=== PATIENT | female | born 1940 | race Caucasian/White ===

== ENCOUNTER 2018-03-07 13:13 | Emergency (ER) | payer MEDICARE ==
[~2018-03-07 13:13] MED LIST: ALLO-2 PO; ASPI-1471 PO; ATOR20TA65 PO; AVALOX; BLOO1STR16 MC; CELE-1 PO; CEPH500C24 PO; DIPH0.5D12 IM; ENAL-1 PO; FUR80 PO; FURO80TA70 PO; GLIM4TAB49 PO; GLIM4TAB50 PO; INDO50CA92 PO; INSU100I28 SQ; INSU100I36 SQ; INSU100V SQ; INSU300I SQ; INSU3INS2 SQ; LEVO175T42 PO; LEVO175T5 PO; LISI5TAB25 PO; MEPE50TA29 PO; METF-409 PO; METF-410 PO; METF-420 PO; PNEU0.5D3 IM; PROP10TA58 PO; SIM10 PO; SIMV-59 PO
--- NOTE | 2018-03-07 13:22 | ER Report ---
History and Physical Time Seen By MD: 13:21 HPI/ROS CHIEF COMPLAINT: Vomiting and diarrhea HISTORY OF PRESENT ILLNESS: This is a 77-year-old female who presents to the emergency department for nausea, vomiting and diarrhea. Patient states that about 6 days ago she developed some nausea and vomiting and progressed into diarrhea. Patient states that she still having nausea and vomiting however the diarrhea has resolved she's had a little output since Wednesday. Patient states that she did eat a salad on Wednesday and was concerned that she had some food poisoning from the recalled lettuce. Patient is also having generalized abdominal pain she thinks secondary to her persistent vomiting. She denies aches , chills, chest pain or shortness of breath. No rashes. No headaches. REVIEW OF SYSTEMS: Constitutional: No fever, no chills. Eyes: No discharge. ENT: No sore throat. Cardiovascular: No chest pain, no palpitations. Respiratory: No cough, no shortness of breath. Gastrointestinal: As above. Genitourinary: No hematuria. Musculoskeletal: No back pain. Skin: No rashes. Neurological: No headache. Allergies: Coded Allergies: ranitidine (Verified Allergy, Severe, ANAPHYLAXIS, 03/07/18) Penicillins (Verified Allergy, Mild, RASH, 03/07/18) Sulfa (Sulfonamide Antibiotics) (Verified Allergy, Mild, RASH, 03/07/18) acetaminophen (Verified Allergy, Mild, RASH, 03/07/18) codeine (Verified Allergy, Mild, RASH, 03/07/18) oxycodone (Verified Allergy, Mild, RASH, 03/07/18) propoxyphene (Verified Allergy, Mild, RASH, 03/07/18) Home Meds Active Scripts Ondansetron (ZOFRAN ODT) 4 Mg Tab.rapdis, 4 MG PO Q6H Y for NAUSEA/VOMITING, # 20 TAB.SALOMÓN Prov:CAMPOS HUDSON [facility] 03/07/18 Metaxalone (SKELAXIN) 800 Mg Tablet, 800 MG PO TID Y for prn, #12 TAB Prov:CAMPOS HUDSON [facility] 03/07/18 Allopurinol (Allopurinol) 300 Mg Tablet, 1 TAB PO DAILY, #90 TAB 3 Refills Prov:JAROD VASQUES MD 10/05/17 Lisinopril (LISINOPRIL) 5 Mg Tablet, 1 TAB PO DAILY, #90 TAB 3 Refills Prov:JAROD VASQUES MD 10/05/17 Furosemide (FUROSEMIDE) 80 Mg Tablet, 1 TAB PO BID, #180 TAB 3 Refills Prov:JAROD VASQUES MD 10/05/17 Propranolol Hcl (PROPRANOLOL HCL) 10 Mg Tablet, 1 TAB PO DAILY, #90 TAB 3 Refills Prov:JAROD VASQUES MD 10/05/17 Blood Sugar Diagnostic (FREESTYLE LITE TEST STRIPS) 1 Each Strip, 1 EACH MC QID Y for prn, #100 STRIP 6 Refills Prov:JAROD VASQUES MD 10/28/16 Levothyroxine Sodium (LEVOTHYROXINE SODIUM) 175 Mcg Tablet, 1 TAB PO QDAY, #90 TAB 3 Refills Prov:JAROD VASQUES MD 09/19/14 Reported Medications Insulin Glargine/Lixisenatide (Soliqua 100 Unit-33 Mcg/ml Pen) 100 Unit-33 Mcg/ Ml (3 Ml) Insuln.pen, 78 SQ QDAY 09/02/17 Atorvastatin Calcium (ATORVASTATIN CALCIUM) 20 Mg Tablet, 1 TAB PO QDAY 05/20/17 Metformin Hcl (METFORMIN HCL) 500 Mg Tablet, 1 TAB PO BID, TAB 05/20/17 Insulin Lispro 100 Un/Ml Pen (HUMALOG 3 ML PEN) 100 Unit/1 Ml Insuln.pen, 10-20 UNIT SQ Before meals sliding scale 11/28/14 Indomethacin (INDOMETHACIN) 50 Mg Capsule, 1 CAP PO TID Y for GOUT, CAPSULE 11/28/14 Aspirin (ASPIR 81) 81 Mg Tablet., 1 TAB PO QDAY 11/28/14 Past Medical/Surgical History Patient has a past medical and surgical history of murmur, hypertension, pneumonia, arthritis, type II diabetes, does use insulin for her to type II diabetes. 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 Reviewed Nurses Notes: Yes Hx Smoking: No Smoking Status: Never Smoker Exposure to Second Hand Smoke?: Yes Hx Alcohol Use: No Constitutional Vital Sign - Last 24 Hours 03/07/18 03/07/18 03/07/18 03/07/18 13:20 13:28 13:28 13:48 Temp 98.8 Pulse 92 96 Resp 18 B/P (MAP) 106/68 (81) 106/96 Pulse Ox 91 90 O2 Delivery Room Air O2 Flow Rate 2.0 03/07/18 03/07/18 03/07/18 03/07/18 13:52 16:00 16:01 16:43 Pulse 85 B/P (MAP) 109/46 (67) 116/48 (70) 120/52 (74) Intake and Output 03/07/18 03/07/18 03/08/18 15:00 23:00 07:00 Intake Total 1000 ml Balance 1000 ml Physical Exam General Appearance: The patient is alert, has no immediate need for airway protection and no signs of toxicity. Eyes: Pupils equal and round no pallor or injection. ENT, Mouth: Mucous membranes are moist. Respiratory: There are no retractions, lungs are clear to auscultation. Cardiovascular: Regular rate and rhythm, systolic murmur, no clicks or rubs. Gastrointestinal: Abdomen is soft and diffusely tender tender, no masses, hypoactive bowel sounds. No abdominal bruits Neurological: Alert and oriented 4. Moving all external these. Following all commands. No focal neuro deficits. Skin: Warm and dry, no rashes. Musculoskeletal: Neck is supple non tender. Extremities are nontender, nonswollen and have full range of motion. DIFFERENTIAL DIAGNOSIS: After history and physical exam differential diagnosis was considered for nausea and vomiting including but not limited to gastroenteritis, food poisoning, gastritis, appendicitis, and medication side effect. Medical Decision Making Data Points Result Diagram: 03/07/18 1341 03/07/18 1341 Laboratory Hematology Test 03/07/18 13:41 Red Blood Count 5.25 M/uL (4.17-5.56) Mean Corpuscular Volume 81.6 fL (80.0-96.0) Mean Corpuscular Hemoglobin 27.1 pg (26.0-33.0) Mean Corpuscular Hemoglobin Concent 33.3 g/dL (32.0-36.0) Red Cell Distribution Width 16.3 % (11.5-14.5) Mean Platelet Volume 7.6 fL (7.2-11.1) Neutrophils (%) (Auto) 92.8 % (39.4-72.5) Lymphocytes (%) (Auto) 3.5 % (17.6-49.6) Monocytes (%) (Auto) 3.3 % (4.1-12.4) Eosinophils (%) (Auto) 0.1 % (0.4-6.7) Basophils (%) (Auto) 0.3 % (0.3-1.4) Nucleated RBC Relative Count (auto) 0.0 /100WBC Neutrophils # (Auto) 12.4 K/uL (2.0-7.4) Lymphocytes # (Auto) 0.5 K/uL (1.3-3.6) Monocytes # (Auto) 0.4 K/uL (0.3-1.0) Eosinophils # (Auto) 0.0 K/uL (0.0-0.5) Basophils # (Auto) 0.0 K/uL (0.0-0.1) Nucleated RBC Absolute Count (auto) 0.00 K/uL Sodium Level 138 mmol/L (137-145) Potassium Level 3.6 mmol/L (3.5-5.0) Chloride Level 94 mmol/L (98-107) Carbon Dioxide Level 27 mmol/L (22-31) Blood Urea Nitrogen 27 mg/dl (7-18) Creatinine 1.40 mg/dl (0.52-1.04) Glomerular Filtration Rate Calc 36.7 Random Glucose 171 mg/dl (75-110) Calcium Level 10.1 mg/dl (8.4-10.2) Total Bilirubin 2.3 mg/dl (0.2-1.3) Aspartate Amino Transf (AST/SGOT) 424 U/L (0-35) Alanine Aminotransferase (ALT/SGPT) 217 U/L (0-56) Alkaline Phosphatase 1407 U/L (0-126) Total Protein 8.1 gm/dl (6.3-8.2) Albumin 4.1 g/dl (3.5-5.0) Amylase Level 60 U/L (0-110) Lipase 94 U/L (23-300) Chemistry Test 03/07/18 13:41 White Blood Count 13.4 k/uL (4.5-11.0) Red Blood Count 5.25 M/uL (4.17-5.56) Hemoglobin 14.2 g/dL (12.0-16.0) Hematocrit 42.9 % (34.0-47.0) Mean Corpuscular Volume 81.6 fL (80.0-96.0) Mean Corpuscular Hemoglobin 27.1 pg (26.0-33.0) Mean Corpuscular Hemoglobin Concent 33.3 g/dL (32.0-36.0) Red Cell Distribution Width 16.3 % (11.5-14.5) Platelet Count 425 K/uL (150-450) Mean Platelet Volume 7.6 fL (7.2-11.1) Neutrophils (%) (Auto) 92.8 % (39.4-72.5) Lymphocytes (%) (Auto) 3.5 % (17.6-49.6) Monocytes (%) (Auto) 3.3 % (4.1-12.4) Eosinophils (%) (Auto) 0.1 % (0.4-6.7) Basophils (%) (Auto) 0.3 % (0.3-1.4) Nucleated RBC Relative Count (auto) 0.0 /100WBC Neutrophils # (Auto) 12.4 K/uL (2.0-7.4) Lymphocytes # (Auto) 0.5 K/uL (1.3-3.6) Monocytes # (Auto) 0.4 K/uL (0.3-1.0) Eosinophils # (Auto) 0.0 K/uL (0.0-0.5) Basophils # (Auto) 0.0 K/uL (0.0-0.1) Nucleated RBC Absolute Count (auto) 0.00 K/uL Glomerular Filtration Rate Calc 36.7 Calcium Level 10.1 mg/dl (8.4-10.2) Total Bilirubin 2.3 mg/dl (0.2-1.3) Aspartate Amino Transf (AST/SGOT) 424 U/L (0-35) Alanine Aminotransferase (ALT/SGPT) 217 U/L (0-56) Alkaline Phosphatase 1407 U/L (0-126) Total Protein 8.1 gm/dl (6.3-8.2) Albumin 4.1 g/dl (3.5-5.0) Amylase Level 60 U/L (0-110) Lipase 94 U/L (23-300) EKG/Imaging Imaging Location: [facility] [place] Patient: Harleen Paul : 1940 Visit/Account:[id number] Date of Sevice: 03/07/2018 Abdominal series with single view of the chest: 03/07/2018 1:28 PM HISTORY: Abdominal pain for one week. Nausea and vomiting diarrhea. COMPARISON:none. FINDINGS: Some stool seen throughout colon. Bowel gas pattern is nonobstructed and nondilated. Abdominal soft tissues grossly normal without suspicious lucencies or abnormal calcifications. No acute bony abnormality with degenerative change seen throughout spine. Lungs show no consolidation, pleural effusion or pneumothorax. No discrete nodule. Cardiomediastinal silhouette and pulmonary vessels within normal limits. No acute bony abnormality. Degenerative change seen in both shoulders. IMPRESSION: 1. Unremarkable exam of the abdomen. 2. No acute cardiopulmonary process. Report Dictated By: Ger Royal at 03/07/2018 2:49 PM Report E-Signed By: Ger Royal at 03/07/2018 2:52 PM WSN:[id number] ED Course/Re-evaluation Clinical Indication for ER IV: Hydration, IV Access ED Course The patient was admitted to a room. A history and physical were obtained. Differential diagnoses were considered. An IV was started. A CBC, CMP were obtained. WBCs 13.4, left shift. Chemistry BUN 27 creatinine 1.4, glucose 171, AST 424, ALT 217, alkaline phosphatase 1407. I did review the results with the patient and did tell her that she needs to follow-up with her provider in the next 2-4 days for repeat blood work. The patient was in agreement with this. She also stated that she had pain across her upper back however when she sat up the pain it seemed to decrease, patient states this is more muscular pain similar to some of the chronic pain that she has an her back. Patient was given 1 L of lactated Ringer's 4 mg IV Zofran, 12.5 mg IV Phenergan. Patient did state that the nausea was better slight decrease in the pain. Patient did not want anything through the IV for pain. I did tell patient that I would go ahead and call in a prescription for Skelaxin for her upper back as well as some Zofran for the nausea. A three-view abdomen was negative for any acute findings. I did review these results with the patient as well. Patient states that she "just wants to go home and lay in her own bed". Patient was encouraged to return to the emergency department for any other concerns or worsening symptoms. She was in agreement with this plan of care and discharged home. Decision to Disposition Date: Mar 07, 2018 Decision to Disposition Time: 16:53 Depart Departure Latest Vital Signs Vital Signs Date Time Temp Pulse Resp B/P (MAP) Pulse Ox O2 Delivery O2 Flow Rate FiO2 03/07/18 16:43 120/52 (74) 03/07/18 16:00 85 03/07/18 13:48 2.0 03/07/18 13:28 98.8 18 90 Room Air Impression: Primary Impression: Nausea & vomiting Additional Impression: Back pain Condition: Improved Disposition: HOME OR SELF-CARE Referrals: JAROD VASQUES MD (PCP) New Scripts Ondansetron (ZOFRAN ODT) 4 Mg Tab.rapdis 4 MG PO Q6H Y for NAUSEA/VOMITING, #20 TAB.SALOMÓN Prov: CAMPOS HUDSON [facility] 03/07/18 Metaxalone (SKELAXIN) 800 Mg Tablet 800 MG PO TID Y for prn, #12 TAB Prov: CAMPOS HUDSON [facility] 03/07/18 Patient Instructions: Acute Nausea and Vomiting (ED), Back Pain (ED) Additional Instructions: Drink plenty of fluids. Get plenty of rest. Clear liquid diet for 24-48 hours. Slowly progress into a regular diet after 48 hours. Take the medications as prescribed. Emergency department for any other concerns or worsening symptoms. All up with your primary care provider as scheduled. Problem Qualifiers Primary Impression: Nausea & vomiting Vomiting type: unspecified Vomiting Intractability: non-intractable Qualified Codes: R11.2 - Nausea with vomiting, unspecified Additional Impression: Back pain Back pain location: thoracic back pain Chronicity: chronic Back pain laterality: bilateral Qualified Codes: M54.6 - Pain in thoracic spine; G89.29 - Other chronic pain CAMPOS HUDSON [facility] Mar 07, 2018 13:22
[2018-03-07] MEDS ORDERED: LR(*) 1000 ML BAG 1,000 ML IV ONE (13:28)
[2018-03-07] MEDS ORDERED: ONDANSETRON 4 MG/2 ML VIAL IVP ONE (13:30)
[2018-03-07 13:53] LABS: PLATELET COUNT, AUTOMATED 425 K/uL (150-450)
--- NOTE | 2018-03-07 14:56 | RADIOLOGY IMAGING REPORT ---
FACILITY: [facility] PATIENT NAME: Harleen Paul : 1940 MR: [id number] V: [id number] EXAM DATE: ORDERING PHYSICIAN: CAMPOS HUDSON TECHNOLOGIST: Location: [facility] Patient: Harleen Paul : 1940 Visit/Account:[id number] Date of Sevice: 03/07/2018 Abdominal series with single view of the chest: 03/07/2018 1:28 PM HISTORY: Abdominal pain for one week. Nausea and vomiting diarrhea. COMPARISON:none. FINDINGS: Some stool seen throughout colon. Bowel gas pattern is nonobstructed and nondilated. Abdom inal soft tissues grossly normal without suspicious lucencies or abnormal calcifications. No acute juan ny abnormality with degenerative change seen throughout spine. Lungs show no consolidation, pleural effusion or pneumothorax. No discrete nodule. Cardiomediastinal silhouette and pulmonary vessels within normal limits. No acute bony abnormality. Degenerative granados e seen in both shoulders. IMPRESSION: 1. Unremarkable exam of the abdomen. 2. No acute cardiopulmonary process. Report Dictated By: Ger Royal at 03/07/2018 2:49 PM Report E-Signed By: Ger Royal at 03/07/2018 2:52 PM WSN:[id number]
[2018-03-07] MEDS ORDERED: PROMETHAZINE 25 MG/ML 1 ML AMP IVP ONE (15:55)
[2018-03-07 16:43] VITALS: BP 120/52
[2018-03-07] MEDS ORDERED: META800T18 PO (16:53)
[2018-03-07] MEDS ORDERED: ONDA4TAB PO (16:53)
== END 2018-03-07 17:04 | disposition home or self-care (01) ==
LOC: ER 13:14
DX: R11.2 Nausea with vomiting, unspecified (principal); M54.89 Other dorsalgia
CPT/HCPCS: 74022; 82150; 83690; 85025; 96361; 96374; 96375; 99284; J2405; J2550; J7120; 82040; 82247; 82310; 82374; 82435; 82565; 82947; 84075; 84132; 84155; 84295; 84450; 84460; 84520

== ENCOUNTER 2018-03-10 10:07 | Emergency (ER) | payer MEDICARE ==
[2018-03-10] MEDS ORDERED: NS(*) 0.9% 1000 ML BAG 1,000 ML IV ONE (10:10)
--- NOTE | 2018-03-10 10:10 | ER Report ---
History and Physical Time Seen By MD: 10:08 HPI/ROS CHIEF COMPLAINT: Persistent nausea vomiting and diarrhea along with abdominal pain. HISTORY OF PRESENT ILLNESS: Patient is a 77-year-old female who is sent to the emergency department for reevaluation of persistent nausea vomiting and diarrhea. Patient was asked she seen on March 07 urgency department for similar symptoms. She had the symptoms began approximate 6 days earlier. Blood work at that time showed an elevated white count at 13.4 with normal hemoglobin and hematocrit. Patient had elevated BUNs a 27 creatinine 1.4 and glucose of 171. She was followed state by Dr. Hatch and found to have an elevated creatinine at 2.5 and was hypotensive with systolic blood pressure in the 80s. For that reason the patient was sent to the emergency department for further evaluation. She states that she did hold some chicken broth down last night but is still having the symptoms. She admits to voluminous diarrhea this past Wednesday. Since that time she has not had a bowel movement she is also noticed decreased urinary output as well. The pain is mild at this time but does increase in intensity and comes in waves. He denies any blood or mucus in the stool. She denies any past surgical history. REVIEW OF SYSTEMS: Constitutional: No fever, no chills. Eyes: No discharge. ENT: No sore throat. Cardiovascular: No chest pain, no palpitations. Respiratory: No cough, no shortness of breath. Gastrointestinal: Nausea, vomiting, diarrhea, abdominal pain Genitourinary: No hematuria. Denies dysuria Musculoskeletal: No back pain. Skin: No rashes. Neurological: No headache. Allergies: Coded Allergies: ranitidine (Verified Allergy, Severe, ANAPHYLAXIS, 03/07/18) Penicillins (Verified Allergy, Mild, RASH, 03/07/18) Sulfa (Sulfonamide Antibiotics) (Verified Allergy, Mild, RASH, 03/07/18) acetaminophen (Verified Allergy, Mild, RASH, 03/07/18) codeine (Verified Allergy, Mild, RASH, 03/07/18) oxycodone (Verified Allergy, Mild, RASH, 03/07/18) propoxyphene (Verified Allergy, Mild, RASH, 03/07/18) Home Meds Active Scripts Ondansetron (ZOFRAN ODT) 4 Mg Tab.rapdis, 4 MG PO Q6H Y for NAUSEA/VOMITING, # 20 TAB.SALOMÓN Prov:SONDGEROTHCAMPOS Hanane BRASS WIND INSTRUMENT MAKER-BC 03/07/18 Metaxalone (SKELAXIN) 800 Mg Tablet, 800 MG PO TID Y for prn, #12 TAB Prov:TRISTANCAMPOS Koo BRASS W[employer] INSTRUMENT MAKER-BC 03/07/18 Allopurinol (Allopurinol) 300 Mg Tablet, 1 TAB PO DAILY, #90 TAB 3 Refills Prov:JAROD VASQUES MD 10/05/17 Lisinopril (LISINOPRIL) 5 Mg Tablet, 1 TAB PO DAILY, #90 TAB 3 Refills Prov:JAROD VASQUES MD 10/05/17 Furosemide (FUROSEMIDE) 80 Mg Tablet, 1 TAB PO BID, #180 TAB 3 Refills Prov:JAROD VASQUES MD 10/05/17 Propranolol Hcl (PROPRANOLOL HCL) 10 Mg Tablet, 1 TAB PO DAILY, #90 TAB 3 Refills Prov:JAROD VASQUES MD 10/05/17 Blood Sugar Diagnostic (FREESTYLE LITE TEST STRIPS) 1 Each Strip, 1 EACH MC QID Y for prn, #100 STRIP 6 Refills Prov:JAROD VASQUES MD 10/28/16 Levothyroxine Sodium (LEVOTHYROXINE SODIUM) 175 Mcg Tablet, 1 TAB PO QDAY, #90 TAB 3 Refills Prov:JAROD VASQUES MD 09/19/14 Reported Medications Insulin Glargine/Lixisenatide (Soliqua 100 Unit-33 Mcg/ml Pen) 100 Unit-33 Mcg/ Ml (3 Ml) Insuln.pen, 78 SQ QDAY 09/02/17 Atorvastatin Calcium (ATORVASTATIN CALCIUM) 20 Mg Tablet, 1 TAB PO QDAY 05/20/17 Metformin Hcl (METFORMIN HCL) 500 Mg Tablet, 1 TAB PO BID, TAB 05/20/17 Insulin Lispro 100 Un/Ml Pen (HUMALOG 3 ML PEN) 100 Unit/1 Ml Insuln.pen, 10-20 UNIT SQ Before meals sliding scale 11/28/14 Indomethacin (INDOMETHACIN) 50 Mg Capsule, 1 CAP PO TID Y for GOUT, CAPSULE 11/28/14 Aspirin (ASPIR 81) 81 Mg Tablet.dr, 1 TAB PO QDAY 11/28/14 Past Medical/Surgical History Past medical history for hypothyroidism, history of gout, history of diabetes. Patient denies any surgical history. Hx Smoking: No Smoking Status: Never Smoker Exposure to Second Hand Smoke?: Yes Hx Substance Use Disorder: No Hx Alcohol Use: No Constitutional Vital Sign - Last 24 Hours 03/10/18 03/10/18 03/10/18 03/10/18 10:15 10:15 10:20 10:22 Temp 98.6 Pulse 80 70 Resp 16 11 B/P (MAP) 116/73 (87) 116/73 Pulse Ox 96 O2 Delivery Room Air O2 Flow Rate 2.5 03/10/18 03/10/18 03/10/18 03/10/18 10:30 10:45 10:52 11:08 Pulse 67 B/P (MAP) 114/59 (77) 109/59 (76) 120/62 (81) Pulse Ox 94 03/10/18 03/10/18 03/10/18 03/10/18 11:15 11:20 11:35 11:40 Pulse 71 80 82 Resp 11 B/P (MAP) 112/54 (73) Pulse Ox 92 03/10/18 03/10/18 03/10/18 03/10/18 12:02 12:07 12:15 12:20 Pulse 71 74 Resp 15 B/P (MAP) 116/64 (81) 111/58 (75) Pulse Ox 95 96 03/10/18 03/10/18 03/10/18 03/10/18 12:30 12:35 12:45 12:50 Pulse 75 76 B/P (MAP) 130/74 (92) 130/93 (105) Pulse Ox 94 96 03/10/18 03/10/18 12:55 13:00 Pulse 77 Resp 17 B/P (MAP) 124/61 (82) Pulse Ox 96 Intake and Output 03/10/18 03/10/18 03/11/18 15:00 23:00 07:00 Intake Total 1000 ml Balance 1000 ml Physical Exam General/Constitutional: Patient is awake, alert, nontoxic and in no acute respiratory distress. Head: Normocephalic and atraumatic. Eyes: Conjunctival clear, . Sclera are clear and anicteric. Ears:External canals are clear. Tympanic membranes are clear with normal landmarks and light reflex. Nares: No rhinorrhea or bleeding. Turbinates are pink and moist. Oropharyngeal: Mucous membranes are moist. Neck: Supple, no adenopathy. Cardiovascular: Heart is regular rate and rhythm without audible murmurs, rubs or gallops. Pulmonary: Lungs are clear to auscultation bilaterally. There are no wheezes, rales, or rhonchi. Chest rise is symmetrical Abdomen: Abdomen is protuberant and hypertympanic with decreased breath sounds throughout no focal tenderness elicited on exam Extremities: No gross deformities, No peripheral cyanosis. Able to move all 4 extremities. Neuro: Alert and oriented X3, Skin: No rashes, skin is warm dry and well perfused. Medical Decision Making Data Points Result Diagram: 03/10/18 1024 03/10/18 1024 Laboratory Hematology Test 03/10/18 10:24 03/10/18 11:40 Red Blood Count 4.67 M/uL (4.17-5.56) Mean Corpuscular Volume 80.6 fL (80.0-96.0) Mean Corpuscular Hemoglobin 27.6 pg (26.0-33.0) Mean Corpuscular Hemoglobin Concent 34.2 g/dL (32.0-36.0) Red Cell Distribution Width 16.3 % (11.5-14.5) Mean Platelet Volume 8.0 fL (7.2-11.1) Neutrophils (%) (Auto) 85.9 % (39.4-72.5) Lymphocytes (%) (Auto) 7.6 % (17.6-49.6) Monocytes (%) (Auto) 5.8 % (4.1-12.4) Eosinophils (%) (Auto) 0.3 % (0.4-6.7) Basophils (%) (Auto) 0.4 % (0.3-1.4) Nucleated RBC Relative Count (auto) 0.0 /100WBC Neutrophils # (Auto) 14.3 K/uL (2.0-7.4) Lymphocytes # (Auto) 1.3 K/uL (1.3-3.6) Monocytes # (Auto) 1.0 K/uL (0.3-1.0) Eosinophils # (Auto) 0.1 K/uL (0.0-0.5) Basophils # (Auto) 0.1 K/uL (0.0-0.1) Nucleated RBC Absolute Count (auto) 0.01 K/uL Peripheral Blood Smear No Y/N Sodium Level 131 mmol/L (137-145) Potassium Level 3.5 mmol/L (3.5-5.0) Chloride Level 90 mmol/L (98-107) Carbon Dioxide Level 23 mmol/L (22-31) Blood Urea Nitrogen 47 mg/dl (7-18) Creatinine 2.30 mg/dl (0.52-1.04) Glomerular Filtration Rate Calc 20.7 Random Glucose 149 mg/dl (75-110) Lactate 1.4 mmol/L (0.7-2.1) Calcium Level 8.8 mg/dl (8.4-10.2) Total Bilirubin 2.4 mg/dl (0.2-1.3) Aspartate Amino Transf (AST/SGOT) 69 U/L (0-35) Alanine Aminotransferase (ALT/SGPT) 113 U/L (0-56) Alkaline Phosphatase 970 U/L (0-126) Total Protein 6.4 gm/dl (6.3-8.2) Albumin 3.0 g/dl (3.5-5.0) Lipase 16 U/L (23-300) Helicobacter pylori IgG Antibody Negative (NEGATIVE) Urine Color Raya Urine Clarity Slightly-cloudy Urine pH 5.0 pH (4.8-9.5) Urine Specific Ary 1.013 Urine Protein 30 mg/dL (NEGATIVE) Urine Glucose (UA) Negative mg/dL (NEGATIVE) Urine Ketones Negative mg/dL (NEGATIVE) Urine Blood Small (NEGATIVE) Urine Nitrite Negative (NEGATIVE) Urine Bilirubin Negative (NEGATIVE) Urine Urobilinogen 4.0 mg/dL (0.2-1.9) Urine Leukocyte Esterase Negative (NEGATIVE) Urine RBC 1 /HPF (0-2/HPF) Urine WBC 2 /HPF (0-5/HPF) Urine Squamous Epithelial Cells Many /LPF (</=FEW) Urine Amorphous Crystals Few /HPF Urine Bacteria Few /HPF (NONE-FEW) Urine Mucus None /HPF (NONE-FEW) Chemistry Test 03/10/18 10:24 03/10/18 11:40 White Blood Count 16.7 k/uL (4.5-11.0) Red Blood Count 4.67 M/uL (4.17-5.56) Hemoglobin 12.9 g/dL (12.0-16.0) Hematocrit 37.6 % (34.0-47.0) Mean Corpuscular Volume 80.6 fL (80.0-96.0) Mean Corpuscular Hemoglobin 27.6 pg (26.0-33.0) Mean Corpuscular Hemoglobin Concent 34.2 g/dL (32.0-36.0) Red Cell Distribution Width 16.3 % (11.5-14.5) Platelet Count 381 K/uL (150-450) Mean Platelet Volume 8.0 fL (7.2-11.1) Neutrophils (%) (Auto) 85.9 % (39.4-72.5) Lymphocytes (%) (Auto) 7.6 % (17.6-49.6) Monocytes (%) (Auto) 5.8 % (4.1-12.4) Eosinophils (%) (Auto) 0.3 % (0.4-6.7) Basophils (%) (Auto) 0.4 % (0.3-1.4) Nucleated RBC Relative Count (auto) 0.0 /100WBC Neutrophils # (Auto) 14.3 K/uL (2.0-7.4) Lymphocytes # (Auto) 1.3 K/uL (1.3-3.6) Monocytes # (Auto) 1.0 K/uL (0.3-1.0) Eosinophils # (Auto) 0.1 K/uL (0.0-0.5) Basophils # (Auto) 0.1 K/uL (0.0-0.1) Nucleated RBC Absolute Count (auto) 0.01 K/uL Peripheral Blood Smear No Y/N Glomerular Filtration Rate Calc 20.7 Lactate 1.4 mmol/L (0.7-2.1) Calcium Level 8.8 mg/dl (8.4-10.2) Total Bilirubin 2.4 mg/dl (0.2-1.3) Aspartate Amino Transf (AST/SGOT) 69 U/L (0-35) Alanine Aminotransferase (ALT/SGPT) 113 U/L (0-56) Alkaline Phosphatase 970 U/L (0-126) Total Protein 6.4 gm/dl (6.3-8.2) Albumin 3.0 g/dl (3.5-5.0) Lipase 16 U/L (23-300) Helicobacter pylori IgG Antibody Negative (NEGATIVE) Urine Color Raya Urine Clarity Slightly-cloudy Urine pH 5.0 pH (4.8-9.5) Urine Specific Ary 1.013 Urine Protein 30 mg/dL (NEGATIVE) Urine Glucose (UA) Negative mg/dL (NEGATIVE) Urine Ketones Negative mg/dL (NEGATIVE) Urine Blood Small (NEGATIVE) Urine Nitrite Negative (NEGATIVE) Urine Bilirubin Negative (NEGATIVE) Urine Urobilinogen 4.0 mg/dL (0.2-1.9) Urine Leukocyte Esterase Negative (NEGATIVE) Urine RBC 1 /HPF (0-2/HPF) Urine WBC 2 /HPF (0-5/HPF) Urine Squamous Epithelial Cells Many /LPF (</=FEW) Urine Amorphous Crystals Few /HPF Urine Bacteria Few /HPF (NONE-FEW) Urine Mucus None /HPF (NONE-FEW) Urinalysis Test 03/10/18 11:40 Urine Color Raya Urine Clarity Slightly-cloudy Urine pH 5.0 pH (4.8-9.5) Urine Specific Ary 1.013 Urine Protein 30 mg/dL (NEGATIVE) Urine Glucose (UA) Negative mg/dL (NEGATIVE) Urine Ketones Negative mg/dL (NEGATIVE) Urine Blood Small (NEGATIVE) Urine Nitrite Negative (NEGATIVE) Urine Bilirubin Negative (NEGATIVE) Urine Urobilinogen 4.0 mg/dL (0.2-1.9) Urine Leukocyte Esterase Negative (NEGATIVE) Urine RBC 1 /HPF (0-2/HPF) Urine WBC 2 /HPF (0-5/HPF) Urine Squamous Epithelial Cells Many /LPF (</=FEW) Urine Amorphous Crystals Few /HPF Urine Bacteria Few /HPF (NONE-FEW) Urine Mucus None /HPF (NONE-FEW) EKG/Imaging Imaging ABDOMEN/PELVIS W/O CONTRAST HISTORY: abdominal pain TECHNIQUE: Axial images acquired through the abdomen/pelvis. Coronal and sagittal reformatting also performed. No IV contrast administered. Dose Lowering Technique One of the following dose optimization techniques was utilized in the performance of this exam: Automated exposure control; adjustment of the mA and/ or kV according to the patient's size; or use of an iterative reconstruction technique. Specific details can be referenced in the facility's radiology CT exam operational policy. COMPARISON: Acute abdomen series March 07, 2018 FINDINGS: Visualized lung bases: There is peribronchial thickening with a small amount of adjacent airspace consolidation in the medial right lower lobe which could be chronic versus an acute infectious/inflammatory process . There are moderate coronary artery calcifications and a small pericardial effusion Hepatobiliary: There are calcified granulomas within the liver gallbladder is distended and contains multiple stones. The common bile duct is relatively dilated up to 2 cm in diameter. There is dilatation of the intrahepatic biliary tree. In the distal common bile duct there are two calculi one measuring 9 mm in diameter one measuring 8 mm in diameter Spleen: Negative. Adrenals: Negative. Pancreas: Severely atrophic Kidneys ureters and bladder: There is moderate perinephric stranding bilaterally Genitalia: Endometrial stripe is mildly thickened at 1.1 cm for postmenopausal woman GI: There is a small hiatal hernia. There is extensive diverticulosis of the left-sided colon although no CT evidence of acute diverticulitis Vessels/spaces/nodes: Small shotty retroperitoneal lymph nodes Bones/soft tissues: Extensive spondylotic changes of the thoracal lumbar spine.. There Is a small focal hernia containing fat Additional findings: None pertinent. IMPRESSION: There is marked dilatation of the gallbladder which contains numerous stones. The biliary is markedly dilated with the common bile duct measuring up to 2 cm.. There are two calculi in the distal common bile duct measuring up to 9 mm in diameter. Individual stripe is mildly thickened at 1.1 cm for postmenopausal woman Extensive diverticulosis left-sided colon although no CT evidence of acute diverticulitis. Additional nonemergent findings as described Results were called to [facility] at 03/10/2018 11:43 AM. Report Dictated By: Gemma Toledo MD at 03/10/2018 11:29 AM Report E-Signed By: Gemma Toledo MD at 03/10/2018 11:44 AM WSN:[email or web address] ED Course/Re-evaluation ED Course 03/10/2018 10:34:47 am plan at this time will include abdominal workup including CT scan of the abdomen and pelvis, lactate and blood cultures. We will give the patient IV hydration and IV Zofran as her pain controlled at this time. 03/10/2018 12:14:27 pm Patient with common bile duct obstruction. Patient will require transport facility that is ERCP capable; No beds available at [facility]; Patient was accepted at [facility] by Dr Torres. Decision to Disposition Date: March 10, 2018 Decision to Disposition Time: 12:14 Depart Departure Latest Vital Signs Vital Signs Date Time Temp Pulse Resp B/P (MAP) Pulse Ox O2 Delivery O2 Flow Rate FiO2 03/10/18 13:00 124/61 (82) 03/10/18 12:55 77 17 96 03/10/18 10:20 2.5 03/10/18 10:15 98.6 Room Air Impression: Primary Impression: Common bile duct (CBD) obstruction Condition: Improved Disposition: [facility]FER TO [facility] (to Dr Torres at [facility]) Referrals: JAROD VASQUES MD (PCP) [facility] MD March 10, 2018 10:09
--- NOTE | 2018-03-10 10:25 | EKG ---
FACILITY: [facility] PATIENT NAME: JOHN ORTEGA : [id number] MR: [id number] V: [id number] EXAM DATE: ORDERING PHYSICIAN: [facility] TECHNOLOGIST: Darion Mabry Reason : Blood Pressure : / mmHG Vent. Rate : 070 BPM Atrial Rate : 070 BPM P-R Int : 178 ms QRS Dur : 100 ms QT Int : 388 ms P-R-T Axes : 102 -51 123 degrees QTc Int : 419 ms Sinus rhythm with premature supraventricular complexes Nonspecific interventricular conduction delay Left axis Question possible previous anterolateral infarct Abnormal ECG No previous ECGs available Confirmed by PRIYA MONIQUE ([id number]) on 03/10/2018 4:45:33 PM Referred By: Confirmed By:PRIYA MONIQUE
[2018-03-10] MEDS ORDERED: ONDANSETRON 4 MG/2 ML VIAL IVP ONE (10:35)
[2018-03-10 10:44] LABS: PLATELET COUNT, AUTOMATED 381 K/uL (150-450)
--- NOTE | 2018-03-10 11:48 | RADIOLOGY IMAGING REPORT ---
FACILITY: [facility] PATIENT NAME: Harleen Paul : 1940 MR: [id number] V: [id number] EXAM DATE: ORDERING PHYSICIAN: [facility] TECHNOLOGIST: [place] [facility] [place] : 1940 Visit/Account:[id number] Date of Sevice: 03/10/2018 ABDOMEN/PELVIS W/O CONTRAST HISTORY: abdominal pain TECHNIQUE: Axial images acquired through the abdomen/pelvis. Coronal and sagittal reformatting also performed. No IV contrast administered. Dose Lowering Technique One of the following dose optimization techniques was utilized in the performance of this exam: Autom ated exposure control; adjustment of the mA and/or kV according to the patient's size; or use of an i terative reconstruction technique. Specific details can be referenced in the facility's radiology C T exam operational policy. COMPARISON: Acute abdomen series March 07, 2018 FINDINGS: Visualized lung bases: There is peribronchial thickening with a small amount of adjacent airspace co nsolidation in the medial right lower lobe which could be chronic versus an acute infectious/inflamma tory process . There are moderate coronary artery calcifications and a small pericardial effusion Hepatobiliary: There are calcified granulomas within the liver gallbladder is distended and contains multiple stones. The common bile duct is relatively dilated up to 2 cm in diameter. There is dila tation of the intrahepatic biliary tree. In the distal common bile duct there are two calculi one me asuring 9 mm in diameter one measuring 8 mm in diameter Spleen: Negative. Adrenals: Negative. Pancreas: Severely atrophic Kidneys ureters and bladder: There is moderate perinephric stranding bilaterally Genitalia: Endometrial stripe is mildly thickened at 1.1 cm for postmenopausal woman GI: There is a small hiatal hernia. There is extensive diverticulosis of the left-sided colon although no CT evidence of acute diverticul itis Vessels/spaces/nodes: Small shotty retroperitoneal lymph nodes Bones/soft tissues: Extensive spondylotic changes of the thoracal lumbar spine.. There Is a small f ocal hernia containing fat Additional findings: None pertinent. IMPRESSION: There is marked dilatation of the gallbladder which contains numerous stones. The biliary is markedly dilated with the common bile duct measuring up to 2 cm.. There are two calcu li in the distal common bile duct measuring up to 9 mm in diameter. Individual stripe is mildly thickened at 1.1 cm for postmenopausal woman Extensive diverticulosis left-sided colon although no CT evidence of acute diverticulitis. Additional nonemergent findings as described Results were called to [facility] at 03/10/2018 11:43 AM. Report Dictated By: Gemma Toledo MD at 03/10/2018 11:29 AM Report E-Signed By: Gemma Toledo MD at 03/10/2018 11:44 AM WSN:[email or web address]
[2018-03-10] MEDS ORDERED: cefOXitin/DEX(*) 1GM/50ML PREM 50 ML IVPB ONE (12:35)
--- NOTE | 2018-03-10 12:41 | General Surgery Consultation ---
History of Present Illness Requesting Physician er md Reason for Consult obstructive jaundice Chief Complaint abdominal pain History of Present Illness 77 yo female with htn and dm presents with a one week history of abdominal pain. it is across her upper abdomen and back. she has nausea and vomiting. she has had diarrhea. she has not noticed any jaundice. seen in [facility] and bilirubin elevated. lipase normal . ct shows cholelithiasis and choledocholithiasis in the distal common bile duct. History Home Meds Active Scripts Ondansetron (ZOFRAN ODT) 4 Mg Tab.rapdis, 4 MG PO Q6H Y for NAUSEA/VOMITING, # 20 TAB.SALOMÓN Prov:CAMPOS HUDSON IRRIGATION SYSTEM OPERATOR-BC 03/07/18 Metaxalone (SKELAXIN) 800 Mg Tablet, 800 MG PO TID Y for prn, #12 TAB Prov:CAMPOS HUDSON IRRIGATION SYSTEM OPERATOR-BC 03/07/18 Allopurinol (Allopurinol) 300 Mg Tablet, 1 TAB PO DAILY, #90 TAB 3 Refills Prov:JAROD VASQUES MD 10/05/17 Lisinopril (LISINOPRIL) 5 Mg Tablet, 1 TAB PO DAILY, #90 TAB 3 Refills Prov:JAROD VASQUES MD 10/05/17 Furosemide (FUROSEMIDE) 80 Mg Tablet, 1 TAB PO BID, #180 TAB 3 Refills Prov:JAROD VASQUES MD 10/05/17 Propranolol Hcl (PROPRANOLOL HCL) 10 Mg Tablet, 1 TAB PO DAILY, #90 TAB 3 Refills Prov:JAROD VASQUES MD 10/05/17 Blood Sugar Diagnostic (FREESTYLE LITE TEST STRIPS) 1 Each Strip, 1 EACH MC QID Y for prn, #100 STRIP 6 Refills Prov:JAROD VASQUES MD 10/28/16 Levothyroxine Sodium (LEVOTHYROXINE SODIUM) 175 Mcg Tablet, 1 TAB PO QDAY, #90 TAB 3 Refills Prov:JAROD VASQUES MD 09/19/14 Reported Medications Insulin Glargine/Lixisenatide (Soliqua 100 Unit-33 Mcg/ml Pen) 100 Unit-33 Mcg/ Ml (3 Ml) Insuln.pen, 78 SQ QDAY 09/02/17 Atorvastatin Calcium (ATORVASTATIN CALCIUM) 20 Mg Tablet, 1 TAB PO QDAY 05/20/17 Metformin Hcl (METFORMIN HCL) 500 Mg Tablet, 1 TAB PO BID, TAB 05/20/17 Insulin Lispro 100 Un/Ml Pen (HUMALOG 3 ML PEN) 100 Unit/1 Ml Insuln.pen, 10-20 UNIT SQ Before meals sliding scale 11/28/14 Indomethacin (INDOMETHACIN) 50 Mg Capsule, 1 CAP PO TID Y for GOUT, CAPSULE 11/28/14 Aspirin (ASPIR 81) 81 Mg Tablet.dr, 1 TAB PO QDAY 11/28/14 Allergies: Coded Allergies: ranitidine (Verified Allergy, Severe, ANAPHYLAXIS, 03/07/18) Penicillins (Verified Allergy, Mild, RASH, 03/07/18) Sulfa (Sulfonamide Antibiotics) (Verified Allergy, Mild, RASH, 03/07/18) acetaminophen (Verified Allergy, Mild, RASH, 03/07/18) codeine (Verified Allergy, Mild, RASH, 03/07/18) oxycodone (Verified Allergy, Mild, RASH, 03/07/18) propoxyphene (Verified Allergy, Mild, RASH, 03/07/18) Family History: FH: OK (myocardial infarction) MATERNAL GRANDFATHER, , Age:70 FH: breast cancer MATERNAL GRANDMOTHER, , Age:60 years and older FH: colon cancer MOTHER, , Age:76 FH: diabetes mellitus BROTHER OR SISTER, Age:79 FH: lung cancer FATHER, , Age:78 FH: renal cell carcinoma BROTHER OR SISTER, Age:79, Onset:73 Review of Systems Cardiovascular: No Chest Pain, No Palpitations, No Orthostatic Hypotension, No Other Respiratory: No Shortness of Breath, No Cough, No Wheezing, No Other Gastrointestinal: Nausea, Vomiting, Diarrhea Genitourinary: No Dysuria, No Hematuria, No Urinary Incontinence, No Other Other she has htn and dm Exam Vital Signs Vital Signs Date Time Temp Pulse Resp B/P (MAP) Pulse Ox O2 Delivery O2 Flow Rate FiO2 03/10/18 12:15 111/58 (75) 03/10/18 12:07 71 15 95 03/10/18 10:20 2.5 03/10/18 10:15 98.6 Room Air General Appearance: Alert, Awake, No Acute Distress GI: Other (mild tenderness across the upper abdomen.) Medical Decision Making Data Points Result Diagram: 03/10/18 1024 03/10/18 1024 Assessment and Plan Problems: (1) Common bile duct (CBD) obstruction Status: Acute Assessment & Plan: pt will be sent for ercp in [place] for removal of common bile duct stones. we will plan on a laparoscopic cholecystectomy on wednesday if that procedure goes well. discussed the procedure complications and recovery Copies to: JAROD VASQUES MD; JOSEP ESCOBAR MD Venous Thromboembolism Antithrombotics Is Pt On Any Antithrombotics?: No JOSEP ESCOBAR MD March 10, 2018 12:41
[2018-03-10 13:00] VITALS: BP 124/61
== END 2018-03-10 13:09 | disposition short-term general hospital (02) ==
LOC: ER 10:11
DX: K83.1 Obstruction of bile duct (principal); R94.31 Abnormal electrocardiogram [ECG] [EKG]; K86.89 Other specified diseases of pancreas; K44.9 Diaphragmatic hernia without obstruction or gangrene; K57.30 Diverticulosis of large intestine without perforation or abscess without bleeding
CPT/HCPCS: 74176; 81001; 83605; 83690; 85025; 86677; 87040; 93005; 96361; 96365; 96375; 99285; J0694; J2405; J7030; 82040; 82247; 82310; 82374; 82435; 82565; 82947; 84075; 84132; 84155; 84295; 84450; 84460; 84520

== ENCOUNTER → 2018-03-10 | Outpatient (CLI) | payer MEDICARE ==
[~2018-03-10] MED LIST changes: +META800T18 PO; -METF-410 PO; +METF-411 PO; -METF-420 PO; +METF-421 PO; +ONDA4TAB PO
== END ==
LOC: AMB 12:50
PROVIDERS: ATTEND Nurse Practitioner
DX: K83.1 Obstruction of bile duct (principal)
CPT/HCPCS: A0425; A0434

== ENCOUNTER → 2018-03-10 | Outpatient (CLI) | payer MEDICARE ==
[~2018-03-10] MED LIST changes: +METF-410 PO; -METF-411 PO; +METF-420 PO; -METF-421 PO
== END ==
LOC: LAB 08:12
PROVIDERS: ATTEND Internal Medicine Endocrinology, Diabetes & Metabolism
DX: E11.29 Type 2 diabetes mellitus with other diabetic kidney complication (principal); R80.9 Proteinuria, unspecified; E03.8 Other specified hypothyroidism; E06.3 Autoimmune thyroiditis; E11.65 Type 2 diabetes mellitus with hyperglycemia; E78.5 Hyperlipidemia, unspecified
CPT/HCPCS: 36415; 82040; 82043; 82247; 82310; 82374; 82435; 82465; 82565; 82570; 82947; 83036; 83718; 84075; 84132; 84155; 84295; 84443; 84450; 84460; 84478; 84520

== ENCOUNTER → 2018-03-10 | Outpatient (CLI) | payer MEDICARE | LOC: LAB 09:32 | PROVIDERS: ATTEND Internal Medicine | DX: E11.8 Type 2 diabetes mellitus with unspecified complications (principal); E11.65 Type 2 diabetes mellitus with hyperglycemia; Z79.4 Long term (current) use of insulin; R11.2 Nausea with vomiting, unspecified | CPT/HCPCS: 85027 ==

== ENCOUNTER → 2018-08-08 | Outpatient (CLI) | payer MEDICARE ==
[~2018-08-08] MED LIST changes: +FLUT16SP19 NS; +INDO-23 PO; -INDO50CA92 PO; -METF-410 PO; -METF-420 PO; +METF-450 PO; +METF-452 PO; -SIMV-59 PO; +SIMV-63 PO
== END ==
LOC: LAB 15:26
PROVIDERS: ATTEND Otolaryngology
DX: H90.41 Sensorineural hearing loss, unilateral, right ear, with unrestricted hearing on the contralateral side (principal)
CPT/HCPCS: 36415; 82565

== ENCOUNTER → 2018-08-08 | Outpatient (CLI) | payer MEDICARE | LOC: AUD 08-03 13:44 | PROVIDERS: ATTEND Otolaryngology | DX: H90.3 Sensorineural hearing loss, bilateral (principal) | CPT/HCPCS: 92557; 92570 ==

== ENCOUNTER → 2018-08-12 | Outpatient (CLI) | payer MEDICARE ==
[~2018-08-12] MED LIST changes: +GADOBENATE 529MG/1ML 15ML VIAL IVP ONE
--- NOTE | 2018-08-12 13:29 | RADIOLOGY IMAGING REPORT ---
FACILITY: [facility] [place] PATIENT NAME: Harleen Paul : 1940 MR: [id number] V: [id number] EXAM DATE: ORDERING PHYSICIAN: JACKIE LUNA TECHNOLOGIST: Location: [facility] Patient: Harleen Paul : 1940 Visit/Account:[id number] Date of Sevice: 08/12/2018 Study: MRI of the brain without and with gadolinium contrast. Indication: Right-sided asymmetrical sensorineural neural hearing loss Comparison study: None Contrast used: 15 mL MultiHance gadolinium contrast Technique: Multiplanar MRI sequences were obtained through the brain before and after the administrat ion of gadolinium contrast. The examination demonstrates no evidence of acute intracranial hemorrhage. There is no evidence of ex tra-axial collection or hydrocephalus. There is no abnormal signal identified within the brain parenchyma. There is mild atrophy present. There is no evidence of cerebellopontine angle mass. The 7th and 8th cranial nerve bundles are unrema rkable bilaterally. There is no abnormal enhancement present within these regions. Incidental note is made of patchy opacification of the mastoid air cells bilaterally. The pituitary gland is unremarkable in appearance. There is no evidence of abnormality of the pineal gland. A diffusion-weighted sequence was performed and demonstrates no evidence of active ischemia. There is no evidence of active infarct The orbits are unremarkable. The paranasal sinuses are unremarkable Following the administration of gadolinium contrast, there is no abnormal intracranial contrast enhan cement. IMPRESSION:Unremarkable MRI of the brain without and with intravenous contrast. Specifically, there is no evidence of abnormality of the 7th and 8th cranial nerve bundles. There is no evidence of cerebellopontine angle mass. Incidental note is made of patchy opacification of the mastoid air cells bilaterally. Report Dictated By: Edgard Chun at 08/12/2018 1:12 PM Report E-Signed By: Edgard Chun at 08/12/2018 1:25 PM WSN:[email or web address]
== END ==
LOC: MRI 04:21
PROVIDERS: ATTEND Otolaryngology
DX: H90.41 Sensorineural hearing loss, unilateral, right ear, with unrestricted hearing on the contralateral side (principal); E11.9 Type 2 diabetes mellitus without complications
CPT/HCPCS: 70553; A9577

== ENCOUNTER → 2018-08-30 | Outpatient (CLI) | payer MEDICARE ==
[~2018-08-30] MED LIST changes: -GADOBENATE 529MG/1ML 15ML VIAL IVP ONE
--- NOTE | 2018-08-30 10:10 | RADIOLOGY IMAGING REPORT ---
FACILITY: [facility] PATIENT NAME: JOHN ORTEGA : [id number] MR: [id number] V: [id number] EXAM DATE: ORDERING PHYSICIAN: JAROD VASQUES TECHNOLOGIST: Alessandra Lemon PROCEDURE:BILATERAL DIGITAL SCREENING MAMMOGRAM WITH CAD ASSISTED INTERPRETATION & 3D TOMOSYNTHESIS COMPARISON:Prior mammograms 08/26/17, 05/20/16, 10/11/14, 07/11/13, 06/24/12. INDICATIONS:SCREENING FINDINGS: A small amount of fibroglandular tissue is seen throughout the breasts. The parenchymal pattern has remained stable allowing for difference in mammographic technique & patient positioning. There is no evidence of malignant appearing mass, malignant appearing calcifications or other secondary sign of malignancy in either breast. DIAGNOSTIC CATEGORY 1--NEGATIVE. RECOMMENDATIONS: ROUTINE MAMMOGRAM AND CLINICAL EVALUATION. IMPRESSION: BIRADS 1: Negative. No significant abnormality is seen. Dictated by: Gemma Toledo M.D. on 08/30/2018 at 9:46 Transcribed by: ANITA on 08/30/2018 at 9:54 Approved by: Gemma Toledo M.D. on 08/30/2018 at 10:09 [facility]
== END ==
LOC: MAMO 00:17
PROVIDERS: ATTEND Internal Medicine
DX: Z12.31 Encounter for screening mammogram for malignant neoplasm of breast (principal); Z80.3 Family history of malignant neoplasm of breast
CPT/HCPCS: 77063; 77067

== ENCOUNTER 2019-01-18 11:14 | Emergency (ER) | payer MEDICARE ==
[~2019-01-18 11:14] MED LIST changes: +SIMV-117 PO; -SIMV-63 PO
--- NOTE | 2019-01-18 11:20 | ER Report ---
History and Physical Time Seen By MD: 11:19 HPI/ROS CHIEF COMPLAINT: Confusion HISTORY OF PRESENT ILLNESS: This is a 78-year-old female presents to the emergency department, with her son for confusion. Patient has been sick with cold-like symptoms over the last week, has a nonproductive cough, maybe some aches but no chills, no fevers no chest pain or shortness of breath. Her last night according to the son, the patient got up around 1 AM to go to the bathroom, had a blank stare, not responding appropriately, EMS was contacted, by the time they arrived the patient was back to her "baseline", noted to have elevated blood sugars today as well, she refused transport last night. Followed up at urgent care today, they noted her pulse to be irregular, was concerned about new onset arrhythmia subsequently sent to the ER. Patient arrives alert and oriented, interacting well, acting appropriate. 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 No rashes, no headaches. REVIEW OF SYSTEMS: Constitutional: As above. Eyes: No discharge. ENT: No sore throat. Cardiovascular: As above. Respiratory: No cough, no shortness of breath. Gastrointestinal: No abdominal pain, no vomiting. Genitourinary: No hematuria. Musculoskeletal: No back pain. Skin: No rashes. Neurological: As above. Allergies: Coded Allergies: ranitidine (Verified Allergy, Severe, ANAPHYLAXIS, 03/07/18) Penicillins (Verified Allergy, Mild, RASH, 03/07/18) Sulfa (Sulfonamide Antibiotics) (Verified Allergy, Mild, RASH, 03/07/18) acetaminophen (Verified Allergy, Mild, RASH, 03/07/18) codeine (Verified Allergy, Mild, RASH, 03/07/18) oxycodone (Verified Allergy, Mild, RASH, 03/07/18) propoxyphene (Verified Allergy, Mild, RASH, 03/07/18) Home Meds Active Scripts Oseltamivir Phosphate (TAMIFLU) 75 Mg Cap, 75 MG PO BID, #10 CAP Prov:CAMPOS HUDSONP-BC 01/18/19 Allopurinol (Allopurinol) 300 Mg Tablet, 1 TAB PO DAILY, #90 TAB 3 Refills Prov:JAROD VASQUES MD 12/22/18 Lisinopril (LISINOPRIL) 5 Mg Tablet, 1 TAB PO DAILY, #90 TAB 3 Refills Prov:JAROD VASQUES MD 12/22/18 Furosemide (FUROSEMIDE) 80 Mg Tablet, 1 TAB PO BID, #180 TAB 3 Refills Prov:JAROD VASQUES MD 12/22/18 Propranolol Hcl (PROPRANOLOL HCL) 10 Mg Tablet, 1 TAB PO DAILY, #90 TAB 3 Refills Prov:JAROD VASQUES MD 12/22/18 Blood Sugar Diagnostic (FREESTYLE LITE TEST STRIPS) 1 Each Strip, 1 EACH MC QID PRN for prn, #100 STRIP 6 Refills Prov:JAROD VASQUES MD 10/28/16 Levothyroxine Sodium (LEVOTHYROXINE SODIUM) 175 Mcg Tablet, 1 TAB PO QDAY, #90 TAB 3 Refills Prov:JAROD VASQUES MD 09/19/14 Reported Medications Insulin Glargine,Hum.rec.anlog (Toumónica Solostar) 300 Unit/1 Ml Insuln.pen, 60 UNITS SQ QDAY 12/22/18 Atorvastatin Calcium (ATORVASTATIN CALCIUM) 20 Mg Tablet, 1 TAB PO QDAY 05/20/17 Metformin Hcl (METFORMIN HCL) 500 Mg Tablet, 1 TAB PO BID, TAB 05/20/17 Insulin Lispro 100 Un/Ml Pen (HUMALOG 3 ML PEN) 100 Unit/1 Ml Insuln.pen, 17-28 UNIT SQ Before meals sliding scale plus 1 unit for every 25 > BS 150 11/28/14 Aspirin (ASPIR 81) 81 Mg Tablet.dr, 1 TAB PO QDAY 11/28/14 Discontinued Reported Medications Indomethacin (INDOMETHACIN) 50 Mg Capsule, 1 CAP PO TID PRN for GOUT, CAPSULE 11/28/14 Discontinued Scripts Fluticasone Prop 50 Mcg Ns (FLONASE 50 MCG NS) 16 Gm [place].susp, 2 SPRAYS NS QDAY for 10 Days, #1 BOT 0 Refills Prov:CELESTINO ARAUJO DNP, WILDLIFE ECOLOGY PROFESSOR-BC 06/28/18 Past Medical/Surgical History The patient has a past medical and surgical history of murmur, hypertension, hypercholesterolemia, pneumonia, arthritis, type II diabetes, insulin-dependent, hypothyroidism, MRSA infection, cataract surgery, left knee surgery. Reviewed Nurses Notes: Yes Hx Smoking: No Smoking Status: Never Smoker Exposure to Second Hand Smoke?: Yes Hx Substance Use Disorder: No Hx Alcohol Use: No Constitutional Vital Sign - Last 24 Hours 01/18/19 01/18/19 01/18/19 01/18/19 11:14 11:18 11:18 11:29 Temp 98.0 Pulse 72 64 77 Resp 18 17 B/P (MAP) 118/70 118/70 (86) Pulse Ox 83 92 O2 Delivery Room Air 01/18/19 01/18/19 01/18/19 01/18/19 11:30 11:42 11:44 11:49 Pulse 72 71 Resp 14 9 B/P (MAP) 108/64 (79) Pulse Ox 95 90 O2 Flow Rate 2.0 01/18/19 01/18/19 01/18/19 01/18/19 12:04 12:19 12:30 12:34 Pulse 72 75 66 Resp 13 B/P (MAP) 107/62 (77) Pulse Ox 93 01/18/19 01/18/19 01/18/19 01/18/19 12:49 13:00 13:04 13:23 Pulse 60 63 63 Resp 17 7 13 B/P (MAP) 110/58 (75) 115/72 (86) Pulse Ox 92 94 94 Physical Exam General Appearance: The patient is alert, has no immediate need for airway p rotection and no signs of toxicity. Eyes: Pupils equal and round no pallor or injection. EOMs intact. ENT, Mouth: Mucous membranes are moist. Respiratory: There are no retractions, lungs are clear to auscultation. Cardiovascular: Regular rate and rhythm, systolic murmur, no clicks or rubs. Gastrointestinal: Abdomen is soft and non tender, no masses, bowel sounds normal. Neurological: Alert and oriented 4. Moving all extremities. Following all commands. No focal neuro deficits. Skin: Warm and dry, no rashes. Musculoskeletal: Neck is supple non tender. Extremities are nontender, nonswollen and have full range of motion. DIFFERENTIAL DIAGNOSIS: After history and physical exam differential diagnosis was considered for myocardial infarction, TIA, stroke, pneumonia, influenza, viral syndrome, DVT. Medical Decision Making Data Points Result Diagram: 01/18/19 1139 01/18/19 1139 Laboratory Hematology Test 01/18/19 11:21 01/18/19 11:39 01/18/19 11:41 01/18/19 11:48 Whole Blood Glucose 258 mg/DL (75-110) Red Blood Count 4.70 M/uL (4.17-5.56) Mean Corpuscular Volume 83.3 fL (80.0-96.0) Mean Corpuscular Hemoglobin 28.1 pg (26.0-33.0) Mean Corpuscular Hemoglobin Concent 33.7 g/dL (32.0-36.0) Red Cell Distribution Width 15.6 % (11.5-14.5) Mean Platelet Volume 7.5 fL (7.2-11.1) Neutrophils (%) (Auto) 64.1 % (39.4-72.5) Lymphocytes (%) (Auto) 21.9 % (17.6-49.6) Monocytes (%) (Auto) 12.9 % (4.1-12.4) Eosinophils (%) (Auto) 0.3 % (0.4-6.7) Basophils (%) (Auto) 0.8 % (0.3-1.4) Nucleated RBC Relative Count (auto) 0.0 /100WBC Neutrophils # (Auto) 5.3 K/uL (2.0-7.4) Lymphocytes # (Auto) 1.8 K/uL (1.3-3.6) Monocytes # (Auto) 1.1 K/uL (0.3-1.0) Eosinophils # (Auto) 0.0 K/uL (0.0-0.5) Basophils # (Auto) 0.1 K/uL (0.0-0.1) Nucleated RBC Absolute Count (auto) 0.00 K/uL Sodium Level 131 mmol/L (137-145) Potassium Level 4.0 mmol/L (3.5-5.0) Chloride Level 91 mmol/L (98-107) Carbon Dioxide Level 27 mmol/L (22-31) Blood Urea Nitrogen 49 mg/dl (7-18) Creatinine 2.00 mg/dl (0.52-1.04) Glomerular Filtration Rate Calc 24.2 Random Glucose 230 mg/dl (75-110) Calcium Level 9.1 mg/dl (8.4-10.2) Total Bilirubin 0.5 mg/dl (0.2-1.3) Aspartate Amino Transf (AST/SGOT) 30 U/L (0-35) Alanine Aminotransferase (ALT/SGPT) 16 U/L (0-56) Alkaline Phosphatase 120 U/L (0-126) Troponin I < 0.012 ng/ml Total Protein 7.9 g/dl (6.3-8.2) Albumin 4.2 g/dl (3.5-5.0) Prothrombin Time 12.6 seconds (12.0-14.4) Prothromb Time International Ratio 0.94 Activated Partial Thromboplast Time 30 seconds (23-35) Magnesium Level 1.8 mg/dl (1.7-2.2) Influenza Virus Type A (PCR) Positive (NEGATIVE) Influenza Virus Type B (PCR) Negative (NEGATIVE) Test 01/18/19 12:14 Urine Color Raya Urine Clarity Cloudy Urine pH 5.0 pH (4.8-9.5) Urine Specific Ary 1.016 Urine Protein Negative mg/dL (NEGATIVE) Urine Glucose (UA) Negative mg/dL (NEGATIVE) Urine Ketones Negative mg/dL (NEGATIVE) Urine Blood Negative (NEGATIVE) Urine Nitrite Negative (NEGATIVE) Urine Bilirubin Negative (NEGATIVE) Urine Urobilinogen 4.0 mg/dL (0.2-1.9) Urine Leukocyte Esterase Trace (NEGATIVE) Urine RBC 6 /HPF (0-2/HPF) Urine WBC 6 /HPF (0-5/HPF) Urine Squamous Epithelial Cells Many /LPF (</=FEW) Urine Transitional Epithelial Cells Few /LPF (NONE-FEW) Urine Amorphous Crystals Few /HPF Urine Bacteria Few /HPF (NONE-FEW) Urine Hyaline Casts Many /LPF (NONE-FEW) Urine Mucus None /HPF (NONE-FEW) Chemistry Test 01/18/19 11:21 01/18/19 11:39 01/18/19 11:41 01/18/19 11:48 Whole Blood Glucose 258 mg/DL (75-110) White Blood Count 8.2 k/uL (4.5-11.0) Red Blood Count 4.70 M/uL (4.17-5.56) Hemoglobin 13.2 g/dL (12.0-16.0) Hematocrit 39.1 % (34.0-47.0) Mean Corpuscular Volume 83.3 fL (80.0-96.0) Mean Corpuscular Hemoglobin 28.1 pg (26.0-33.0) Mean Corpuscular Hemoglobin Concent 33.7 g/dL (32.0-36.0) Red Cell Distribution Width 15.6 % (11.5-14.5) Platelet Count 334 K/uL (150-450) Mean Platelet Volume 7.5 fL (7.2-11.1) Neutrophils (%) (Auto) 64.1 % (39.4-72.5) Lymphocytes (%) (Auto) 21.9 % (17.6-49.6) Monocytes (%) (Auto) 12.9 % (4.1-12.4) Eosinophils (%) (Auto) 0.3 % (0.4-6.7) Basophils (%) (Auto) 0.8 % (0.3-1.4) Nucleated RBC Relative Count (auto) 0.0 /100WBC Neutrophils # (Auto) 5.3 K/uL (2.0-7.4) Lymphocytes # (Auto) 1.8 K/uL (1.3-3.6) Monocytes # (Auto) 1.1 K/uL (0.3-1.0) Eosinophils # (Auto) 0.0 K/uL (0.0-0.5) Basophils # (Auto) 0.1 K/uL (0.0-0.1) Nucleated RBC Absolute Count (auto) 0.00 K/uL Glomerular Filtration Rate Calc 24.2 Calcium Level 9.1 mg/dl (8.4-10.2) Total Bilirubin 0.5 mg/dl (0.2-1.3) Aspartate Amino Transf (AST/SGOT) 30 U/L (0-35) Alanine Aminotransferase (ALT/SGPT) 16 U/L (0-56) Alkaline Phosphatase 120 U/L (0-126) Troponin I < 0.012 ng/ml Total Protein 7.9 g/dl (6.3-8.2) Albumin 4.2 g/dl (3.5-5.0) Prothrombin Time 12.6 seconds (12.0-14.4) Prothromb Time International Ratio 0.94 Activated Partial Thromboplast Time 30 seconds (23-35) Magnesium Level 1.8 mg/dl (1.7-2.2) Influenza Virus Type A (PCR) Positive (NEGATIVE) Influenza Virus Type B (PCR) Negative (NEGATIVE) Test 01/18/19 12:14 Urine Color Raya Urine Clarity Cloudy Urine pH 5.0 pH (4.8-9.5) Urine Specific Ary 1.016 Urine Protein Negative mg/dL (NEGATIVE) Urine Glucose (UA) Negative mg/dL (NEGATIVE) Urine Ketones Negative mg/dL (NEGATIVE) Urine Blood Negative (NEGATIVE) Urine Nitrite Negative (NEGATIVE) Urine Bilirubin Negative (NEGATIVE) Urine Urobilinogen 4.0 mg/dL (0.2-1.9) Urine Leukocyte Esterase Trace (NEGATIVE) Urine RBC 6 /HPF (0-2/HPF) Urine WBC 6 /HPF (0-5/HPF) Urine Squamous Epithelial Cells Many /LPF (</=FEW) Urine Transitional Epithelial Cells Few /LPF (NONE-FEW) Urine Amorphous Crystals Few /HPF Urine Bacteria Few /HPF (NONE-FEW) Urine Hyaline Casts Many /LPF (NONE-FEW) Urine Mucus None /HPF (NONE-FEW) Coagulation Test 01/18/19 11:41 Prothrombin Time 12.6 seconds Prothromb Time International Ratio 0.94 Activated Partial Thromboplast Time 30 seconds Urinalysis Test 01/18/19 12:14 Urine Color Raya Urine Clarity Cloudy Urine pH 5.0 pH (4.8-9.5) Urine Specific Ary 1.016 Urine Protein Negative mg/dL (NEGATIVE) Urine Glucose (UA) Negative mg/dL (NEGATIVE) Urine Ketones Negative mg/dL (NEGATIVE) Urine Blood Negative (NEGATIVE) Urine Nitrite Negative (NEGATIVE) Urine Bilirubin Negative (NEGATIVE) Urine Urobilinogen 4.0 mg/dL (0.2-1.9) Urine Leukocyte Esterase Trace (NEGATIVE) Urine RBC 6 /HPF (0-2/HPF) Urine WBC 6 /HPF (0-5/HPF) Urine Squamous Epithelial Cells Many /LPF (</=FEW) Urine Transitional Epithelial Cells Few /LPF (NONE-FEW) Urine Amorphous Crystals Few /HPF Urine Bacteria Few /HPF (NONE-FEW) Urine Hyaline Casts Many /LPF (NONE-FEW) Urine Mucus None /HPF (NONE-FEW) EKG/Imaging EKG Interpretation 12 lead EKG: Time of EKG 1144. Rhythm: Sinus rhythm, ventricular rate 75 bpm, with PACs. [place]: Left axis QRS: normal ST segments: No ST depression or elevation identified. When compared to the 03/10/2019 EKG positive flexion T waves in V2 1 through V5, previous EKG showing flattened or inverted T waves. Imaging Location: [facility] Patient: Harleen Paul : 1940 Visit/Account:[id number] Date of Sevice: 01/18/[address] scan without contrast COMPARISONS: None ADDITIONAL PERTINENT HISTORY: Confusion with irregular heart rate and dizziness. TECHNIQUE: Multiple axial images were obtained from the skull base to the vertex without IV contrast. One of the following dose optimization techniques was utilized in the performance of this exam: Automated exposure control; adjustment of the mA and/or kV according to the patient's size; or use of an iterative reconstruction technique. Specific details can be referenced in the facility's radiology CT exam operational policy. FINDINGS: Midline shift: Negative Ventricles: Mild enlargement of the lateral and third ventricles. Brain parenchyma: Mild patchy hypoattenuation within the periventricular and subcortical white matter, nonspecific but likely representing small vessel ischemic change on a chronic basis. No intraparenchymal hemorrhage or mass effect. Extra-axial spaces: Mild to moderate cerebral atrophy. Intracranial vasculature: Cavernous internal carotid and distal vertebral artery calcifications. Otherwise negative Osseous structures: Negative Paranasal sinuses and mastoid air cells: Moderate mucosal thickening involving both maxillary sinuses as well as the sphenoid sinuses and ethmoid air cells. Surrounding soft tissues and orbits: Negative IMPRESSION: 1. Age related changes as described above. 2. No evidence of acute intracranial pathology. Report Dictated By: Mark Villavicencio MD at 01/18/2019 12:24 PM Report E-Signed By: Mark Villavicencio MD at 01/18/2019 12:29 PM WSN:[email or web address] Location: [facility] Patient: Harleen Paul : 1940 Visit/Account:[id number] Date of Sevice: 01/18/2019 Exam type: CHEST SINGLE AP History: arrhythmia Comparison: March 07, 2018 Findings: The lungs appear free of acute effusions, infiltrates or edema. The cardiac silhouette is normal in size. There are severe degenerative changes of both shoulder joints.. IMPRESSION: 1. No acute cardiopulmonary process is seen Report Dictated By: Gemma Toledo MD at 01/18/2019 12:13 PM Report E-Signed By: Gemma Toledo MD at 01/18/2019 12:15 PM JOSE RAULN:THIERRY ED Course/Re-evaluation Clinical Indication for ER IV: Hydration, IV Access ED Course The patient was admitted to a room. A history of physical were obtained. Diagnoses were considered. An IV was started. A CBC, CMP and troponin were obtained. A 500 mL normal saline bolus was given.CBC unremarkable, chemistry showing glucose 2:30, sodium 131, BUN 49, creatinine 2.0 which is up from amy ent's previous 1.4, or a believe this is likely prerenal and hydrations status as well as current medication causing the elevated creatinine, contaminated urine, positive for influenza A. Negative head CT, negative chest x-ray. Patient states she is feeling better after the fluid. I reviewed the results with the patient and her family, they were concerned that her "atrial fibrillation as was told at urgent care, I did reassure them she is not in atrial fibrillation, she is in a sinus rhythm with PACs. They're also concerned about the confusion, i.e. did explain to them that there have been many cases this year of influenza causing similar symptoms, I did review this with our hospitalist, he and I both felt that the patient would be okay to go home, as the patient's primary care provider Dr. Varghese retired, I did recommend following up and establishing with a new primary care provider within one week, she was given the name of partners of Dr. Decker. The patient and family both expressed understanding, patient was happy that she was able to go home, they were encouraged to return to year for his concerns or worsening symptoms, they're agreeable with this plan care and discharged home. 01/18/2019 1:16:57 pm I did speak with Dr. Farfan, the hospitalist superintendent stations, he felt that the patient would be safe to go home at this time, I agree with Dr. Farfan, patient is in agreement as well. Decision to Disposition Date: Jan 18, 2019 Decision to Disposition Time: 13:16 Depart Departure Latest Vital Signs Vital Signs Date Time Temp Pulse Resp B/P (MAP) Pulse Ox O2 Delivery O2 Flow Rate FiO2 01/18/19 13:23 63 13 115/72 (86) 94 01/18/19 11:42 2.0 01/18/19 11:18 98.0 Room Air Impression: Primary Impression: Influenza A Condition: Improved Disposition: HOME OR SELF-CARE Referrals: SHONA QURESHI MD, SAMEERA F MD JAVAID, FARRUKH MD RAYMER, CHELSEA A DNP, [facility]- 1 Week New Scripts Oseltamivir Phosphate (TAMIFLU) 75 Mg Cap 75 MG PO BID, #10 CAP Prov: CAMPOS HUDSON [facility]- 01/18/19 Patient Instructions: Influenza (ED) Additional Instructions: You are positive for influenza A. Take the Tamilfu as prescribed. Be sure to drink plenty of water. Please establish with and follow up with one of the providers noted on your discharge paperwork, within one week. If you establish with one of the providers and will be several weeks before you can follow up, please follow up with Celestino Araujo DNP to ensure you are improving. Get plenty of rest. Continue taking your regular medications. Return to the ED for any other concerns or worsening symptoms. CAMPOS HUDSON [facility]- Jan 18, 2019 11:20
[2019-01-18] MEDS ORDERED: NS(*) 0.9% 500 ML BAG 500 ML IV ONE (11:38)
[2019-01-18 11:52] LABS: PLATELET COUNT, AUTOMATED 334 K/uL (150-450)
--- NOTE | 2019-01-18 11:52 | EKG ---
FACILITY: [facility] [place] PATIENT NAME: JOHN ORTEGA : [id number] MR: [id number] V: [id number] EXAM DATE: ORDERING PHYSICIAN: CAMPOS HUDSON TECHNOLOGIST: PENG Mabry Reason : Blood Pressure : / mmHG Vent. Rate : 075 BPM Atrial Rate : 075 BPM P-R Int : 196 ms QRS Dur : 116 ms QT Int : 432 ms P-R-T Axes : 042 -37 115 degrees QTc Int : 482 ms Sinus rhythm with premature atrial complexes Left axis deviation Anterolateral infarct (cited on or before 18-JAN-2019) Abnormal ECG When compared with ECG of 10-MAR-2018 10:20, T wave inversion less evident in Lateral leads QT has lengthened Confirmed by FARIHA DENIS ([id number]) on 01/18/2019 12:49:02 PM Referred By: Confirmed By:FARIHA DENIS
--- NOTE | 2019-01-18 12:19 | RADIOLOGY IMAGING REPORT ---
FACILITY: [facility] PATIENT NAME: Harleen Paul : 1940 MR: [id number] V: [id number] EXAM DATE: ORDERING PHYSICIAN: CAMPOS HUDSON TECHNOLOGIST: Location: [facility] Patient: Harleen Paul : 1940 Visit/Account:[id number] Date of Sevice: 01/18/2019 Exam type: CHEST SINGLE AP History: arrhythmia Comparison: March 07, 2018 Findings: The lungs appear free of acute effusions, infiltrates or edema. The cardiac silhouette is normal in size. There are severe degenerative changes of both shoulder joints.. IMPRESSION: 1. No acute cardiopulmonary process is seen Report Dictated By: Gemma Toledo MD at 01/18/2019 12:13 PM Report E-Signed By: Gemma Toledo MD at 01/18/2019 12:15 PM WSN:[id number]
[2019-01-18 12:30] LABS: INR 0.94
--- NOTE | 2019-01-18 12:33 | RADIOLOGY IMAGING REPORT ---
FACILITY: [facility] PATIENT NAME: Harleen Paul : 1940 MR: [id number] V: [id number] EXAM DATE: ORDERING PHYSICIAN: CAMPOS HUDSON TECHNOLOGIST: Location: [facility] Patient: Harleen Paul : 1940 Visit/Account:[id number] Date of Sevice: 01/18/[address] scan without contrast COMPARISONS: None ADDITIONAL PERTINENT HISTORY: Confusion with irregular heart rate and dizziness. TECHNIQUE: Multiple axial images were obtained from the skull base to the vertex without IV contrast . One of the following dose optimization techniques was utilized in the performance of this exam: Aut omated exposure control; adjustment of the mA and/or kV according to the patient's size; or use of an iterative reconstruction technique. Specific details can be referenced in the facility's radiology CT exam operational policy. FINDINGS: Midline shift: Negative Ventricles: Mild enlargement of the lateral and third ventricles. Brain parenchyma: Mild patchy hypoattenuation within the periventricular and subcortical white matte r, nonspecific but likely representing small vessel ischemic change on a chronic basis. No intraparen chymal hemorrhage or mass effect. Extra-axial spaces: Mild to moderate cerebral atrophy. Intracranial vasculature: Cavernous internal carotid and distal vertebral artery calcifications. Oth erwise negative Osseous structures: Negative Paranasal sinuses and mastoid air cells: Moderate mucosal thickening involving both maxillary sinuse s as well as the sphenoid sinuses and ethmoid air cells. Surrounding soft tissues and orbits: Negative IMPRESSION: 1. Age related changes as described above. 2. No evidence of acute intracranial pathology. Report Dictated By: Mark Villavicencio MD at 01/18/2019 12:24 PM Report E-Signed By: Mark Villavicencio MD at 01/18/2019 12:29 PM WSN:[email or web address]
[2019-01-18] MEDS ORDERED: OSE75 PO (13:18)
[2019-01-18 13:23] VITALS: BP 115/72
== END 2019-01-18 13:30 | disposition home or self-care (01) ==
LOC: ER 11:19
DX: J09.X2 Influenza due to identified novel influenza A virus with other respiratory manifestations (principal); I10 Essential (primary) hypertension; E11.65 Type 2 diabetes mellitus with hyperglycemia; E78.00 Pure hypercholesterolemia, unspecified; E03.9 Hypothyroidism, unspecified
CPT/HCPCS: 36416; 70450; 71045; 81001; 82948; 83735; 84484; 85025; 85610; 85730; 87502; 93005; 96360; 96361; 99284; J7040; 82040; 82247; 82310; 82374; 82435; 82565; 82947; 84075; 84132; 84155; 84295; 84450; 84460; 84520

== ENCOUNTER → 2019-02-07 | Outpatient (CLI) | payer MEDICARE ==
[~2019-02-07] MED LIST changes: +OSE75 PO
== END ==
LOC: LAB 10:14
PROVIDERS: ATTEND Internal Medicine Endocrinology, Diabetes & Metabolism
DX: E11.65 Type 2 diabetes mellitus with hyperglycemia (principal)
CPT/HCPCS: 36415; 82310; 82374; 82435; 82565; 82947; 84132; 84295; 84443; 84520